=== PATIENT | male | born 1975 ===

== ENCOUNTER 2017-02-21 13:32 | Inpatient (IN) | payer BC, OTHER ==
[~2017-02-21] VITALS: Ht 182.9 cm; Wt 81.6 kg
[2017-02-21] MEDS ORDERED: LOPERAMIDE HCL 2 MG CAPSULE PO PRN ×2 (15:45)
[2017-02-21] MEDS ORDERED: LORAZEPAM 1 MG TABLET PO PRN ×2 (15:45)
[2017-02-21] MEDS ORDERED: LORAZEPAM 2 MG/1 ML VIAL IM PRN (15:45)
[2017-02-21] MEDS ORDERED: CLONIDINE HCL 0.1 MG TABLET PO PRN (15:45)
[2017-02-21] MEDS ORDERED: ACETAMINOPHEN 325 MG TABLET PO PRN (15:45)
[2017-02-21] MEDS ORDERED: MIRALAX 17 GM POWD.PACK PO PRN (15:45)
[2017-02-21] MEDS ORDERED: diphenhydrAMINE 50 MG CAPSULE PO PRN (15:45)
[2017-02-21] MEDS ORDERED: ONDANSETRON 4 MG/2 ML VIAL IM PRN (15:45)
[2017-02-21] MEDS ORDERED: THIAMINE HCL 200 MG/2 ML VIAL IM ONE (15:45)
[2017-02-21] MEDS ORDERED: MAG HYDROX/AL HYDROX/SIMETH 30 ML LIQUID UDC PO PRN (15:45)
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
[2017-02-21] MEDS ORDERED: SERT100T PO (16:15)
[2017-02-21] MEDS ORDERED: PANT40TA2 PO (16:15)
[2017-02-21] MEDS ORDERED: SUCR1TAB31 PO (16:15)
[2017-02-21] MEDS ORDERED: THIA100T13 GT (16:15)
[2017-02-21] MEDS ORDERED: MULT-634 PO (16:15)
[2017-02-21] MEDS ORDERED: FOLI1TAB16 PO (16:15)
[2017-02-21] MEDS ORDERED: PROM25TA15 PO (16:15)
[2017-02-21] MEDS ORDERED: ONDA4TAB11 PO (16:15)
[2017-02-21 17:07] LABS: *AMPHETAMINE, URINE NEGATIVE (NEGATIVE); *BARBITURATE, URINE NEGATIVE (NEGATIVE); *CANNABINOID, URINE NEGATIVE (NEGATIVE); *COCCAINE, URINE NEGATIVE (NEGATIVE); *OPIATE, URINE NEGATIVE (NEGATIVE); *PHENCYCLIDINE SCREEN,URINE NEGATIVE (NEGATIVE)
[2017-02-21] MEDS: LORAZEPAM 1 MG TABLET PO SCH ×2 (17:12→21:52)
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
--- NOTE | 2017-02-21 18:38 | NUR ---
END OF SHIFT: NEW PT IS LAYING IN BED SLEEPING WITH RESPIRATIONS EVEN AND UNLABORED. CALL BEST IN REACH. WILL PASS SHIFT REPORT TO ONCOMING NIGHT NURSE.
--- NOTE | 2017-02-21 19:50 | NUR ---
START OF SHIFT Received report from day shift nurse. Pt is lying in bed resting. He is a [address] [facility] today for ETOH dependence. He is A&O x4 and ambulatory. Allergic to cipro, full code status, and on a regular diet. He has a PMH of pancreatitis, seizure x5, anxiety, and depression. Last seizure was 12/2016. On admission he reported using vodka 750mL per day. He was hospitalized for 4 days prior to admission and he received Ativan during that time. MRSA swab to be collected. Pt has moist skin and fine tremors. Taper due tonight. Fall and seizure precautions in place. Bed is down with call light in reach.
[2017-02-21 20:00] VITALS: BP 104/67
[2017-02-21 23:07] LABS: ALANINE AMINOTRANSFERASE 72 U/L (16-63); ALKALINE PHOSPHATASE 59 U/L (50-136); AMYLASE 39 U/L (25-115); ASPARTATE AMINOTRANSFERASE 46 U/L (15-37); CARBON DIOXIDE 25 mmol/L (21-32); CHLORIDE 105 mmol/L (98-107); GLUCOSE 116 mg/dL (74-106); LIPASE 98 U/L (73-393); MAGNESIUM 1.6 mg/dL (1.8-2.4); POTASSIUM 3.8 mmol/L (3.5-5.1); TOTAL PROTEIN, SERUM 6.8 g/dL (6.4-8.2); UREA NITROGEN, BLOOD 16 mg/dL (7-18)
[2017-02-21 23:31] LABS: ETHANOL < 3 MG/DL (0-0)
[2017-02-21 23:38] LABS: BASOPHILS % (AUTO) 0.7 % (0.0-2.0); EOSINOPHILS # (AUTO) 0.4 K/uL (0.0-0.7); EOSINOPHILS % (AUTO) 6.8 % (0.0-7.0); HEMATOCRIT 42.9 % (40-50); HEMOGLOBIN 14.5 G/DL (14.0-18.0); LYMPHOCYTES # (AUTO) 1.9 K/UL (0.8-4.8); LYMPHOCYTES % (AUTO) 35.4 % (20.5-51.5); MEAN CORPUSCULAR HEMOGLOBIN 32.4 UUG (27.0-31.0); MEAN CORPUSCULAR HGB CONC 34 g/dL (32.0-37.0); MONOCYTES # (AUTO) 0.5 K/UL (0.1-1.30); MONOCYTES % (AUTO) 9.6 % (0.0-11.0); NEUTROPHILS # (AUTO) 2.5 K/UL (1.8-8.9); NEUTROPHILS % (AUTO) 47.5 % (38.5-71.5); PLATELET COUNT (AUTO) 122 K/UL (150-450); RED BLOOD CELL COUNT(AUTO) 4.47 MIL/UL (4.7-6.1); WHITE BLOOD COUNT (AUTO) 5.3 K/UL (4.0-11.2)
[2017-02-21] MEDS ORDERED: MAGNESIUM OXIDE 400 MG TABLET PO ONE (23:45)
--- NOTE | 2017-02-21 23:48 | NUR ---
Mag Ox 400mg administered for Mg level 1.6
[2017-02-22] VITALS (7 sets, daily range): BP systolic 118–133; BP diastolic 77–92
[2017-02-22] MEDS: ONDANSETRON ODT 4 MG TAB.RAPDIS SL PRN (04:50)
--- NOTE | 2017-02-22 04:51 | NUR ---
PRN Zofran Pt reports nausea without vomiting. PRN Zofran administered.
--- NOTE | 2017-02-22 05:20 | NUR ---
PRN Zofran reassessment PRN Zofran effective. Pt reports nausea is resolved.
--- NOTE | 2017-02-22 06:10 | NUR ---
PRN Ativan Pt woke up and is having a visual hallucination. He states, "Do you know where my brother is? He just walked out the door". Re-oriented him to the situation. Pt verbalizes understanding then states ,"if you see my brother ask him to come in here". Pt is cooperative. He has mild tremors and dilated pupils. CIWA 9. PRN Ativan administered.
--- NOTE | 2017-02-22 07:10 | NUR ---
PRN Ativan reassessment PRN Ativan effective. Pt is lying in bed resting with eyes closed. Respirations even and unlabored. Safety measures in place.
--- NOTE | 2017-02-22 07:18 | NUR ---
END OF SHIFT 315 Report provided to day shift nurse. Pt is lying in bed resting. He is a 41 yo male admitted to [facility] today for ETOH dependence. He is A&O x4 and ambulatory. Allergic to cipro, full code status, and on a regular diet. He has a PMH of pancreatitis, seizure x5, anxiety, and depression. Last seizure was 12/2016. On admission he reported using vodka 750mL per day. He was hospitalized for 4 days prior to admission and he received Ativan during that time. MRSA swab was collected. PRN Zofran administered for nausea. Pt woke up early in the morning with a visual hallucination. CIWA was 9. PRN Ativan administered and was able to fall back to sleep. He drank 1451mL and slept for 7 hours. Fall and seizure precautions in place. Bed is down with call light in reach.
--- NOTE | 2017-02-22 08:10 | NUR ---
START OF SHIFT: RECEIVED PT A/O X 4. HE STATES HE GOT CONFUSED EARLIER THIS MORNING AND THOUGHT HE SAW HIS BROTHER. HE STATES HE FEELS MORE CLEAR HEADED THIS AM. ATIVAN TAPER IN PROGRESS. CIWA 8. ENCOURAGED INCREASED FLUIDS AND REST TODAY. PPD PLANTED TO [facility]. HE IS COMPLIANT WITH MEDICATIONS AND TREATMENT PLAN. WILL CONTINUE TO MONITOR AND MANAGE S/S OF W/D.
[2017-02-22] MEDS ORDERED: TUBERCULIN,PURIF.PROT.DERIV. 5 TU/0.1 ML TEST ID ONE (09:00)
[2017-02-22] MEDS: MULTIVITAMINS,THERAPEUTIC TABLET PO SCH (09:12)
[2017-02-22] MEDS: THIAMINE HCL 100 MG TABLET PO SCH (09:12)
[2017-02-22] MEDS: FOLIC ACID 1 MG TABLET PO SCH (09:12)
[2017-02-22] MEDS: LORAZEPAM 1 MG TABLET PO SCH ×3 (09:21→21:02)
--- NOTE | 2017-02-22 16:05 | NUR ---
1500 MEDS HELD PT IS ASLEEP. RESPIRATIONS EVEN AD UNLABORED. CIWA DEFERRED AT 1600.
--- NOTE | 2017-02-22 18:50 | NUR ---
END OF SHIFT: PT CONTINUES ON ATIVAN TAPER. LAST CIWA DEFERRED. HIS CIWA AT NOON WAS 7. PPD PLANTED TO [facility]. PT SLEPT MOST OF SHIFT AND SLIGHTLY INCREASED FLUID INTAKE. HE STATES HE HAS HAD NO EPISODES OF HALLUCINATIONS TODAY. WILL PASS SHFT REPORT TO ONCOMING NIGHT NURSE.
--- NOTE | 2017-02-22 19:52 | NUR ---
START OF SHIFT NOTE Pt is a 41 y/o male admitted for ETOH dependence and use. Pt has an allergy to Cipro and reported a PMH of pancreatis, anxiety, depression, and x5 episodes of seizures related to w/d (last one being in December 2016). Per day shift nurse pt was placed on a 5 day Ativan taper (day 2 ) and is tolerating medication well with no s/e or a/r reported. Pt didn't receive any PRNS during the day shift. Last CIWA:7 (1200). At this time pt is in his room sleeping. Pt's skin is slightly moist but intact. No tremors noted. Further assessment deferred until pt is awake. All safety measures in place. Will continue to monitor.
[2017-02-22] MEDS: GABAPENTIN 300 MG CAPSULE PO SCH (21:01)
--- NOTE | 2017-02-23 | NUR ---
VITALS REFUSED/ CIWA DEFERRED Pt refused to have vitals taken at this time. Pt was encouraged x 3 with risks and benefits explained, but the pt still declined. CIWA assessment deferred until patient is awake. All safety measures in place. Will continue to monitor. Addendum: 02/23/17 at 0255 by STEPHANIE DAY LVN Amended: Links added.
--- NOTE | 2017-02-23 04:00 | NUR ---
VITALS REFUSED/ CIWA DEFERRED Pt refused to have vitals taken at this time. Pt was encouraged x 3 with risks and benefits explained, but the pt still declined. CIWA assessment deferred until patient is awake. All safety measures in place. Will continue to monitor. Addendum: 02/23/17 at 0601 by STEPHANIE DAY LVN Amended: Links added.
--- NOTE | 2017-02-23 06:59 | NUR ---
END OF SHIFT NOTE Pt is a 41 y/o male admitted for ETOH dependence and use. Pt has an allergy to Cipro and reported a PMH of pancreatis, anxiety, depression, and x5 episodes of seizures related to w/d (last one being in December 2016). Pt continues on a 5 day Ativan taper (day 3 ) and is tolerating medication well with no s/e or a/r reported. Pt didn't receive any PRNS during the shift. Last CIWA: 1 (1999). Pt slept for a total of 6 hours. All safety measures in place. Will endorse to the oncoming nurse.
--- NOTE | 2017-02-23 07:11 | NUR ---
start of shift note: received pt from shift superintendent caustic cresylate nurse, pt is in stable condition at this time no s/s of pain or discomfort, pt's last ciwa 1. pt is [facility] to [facility] for [facility] withdrawal/dependence. will monitor pt for any changes. and will continue to monitor pt for any A/R to medication. will encourage pt to join groups and monitor pt for any changes
[2017-02-23] MEDS: MULTIVITAMINS,THERAPEUTIC TABLET PO SCH (08:06)
[2017-02-23] MEDS: SERTRALINE HCL 100 MG TABLET PO SCH (08:06)
[2017-02-23] MEDS: FOLIC ACID 1 MG TABLET PO SCH (08:06)
[2017-02-23] MEDS: THIAMINE HCL 100 MG TABLET PO SCH (08:06)
[2017-02-23] MEDS: LORAZEPAM 1 MG TABLET PO SCH ×4 (08:06→20:56)
[2017-02-23] MEDS: GABAPENTIN 300 MG CAPSULE PO SCH ×3 (08:06→20:55)
[2017-02-23 08:09] VITALS: BP 109/71
[2017-02-23 11:08] LABS: HEPATITIS B SURFACE AG Negative (Negative)
--- NOTE | 2017-02-23 12:08 | NUR ---
prn administration clonidine for increased b/p. pt was noted with b/p of 163/90.
[2017-02-23 12:11] VITALS: BP 163/91
--- NOTE | 2017-02-23 12:20 | NUR ---
prn re-assessment: prn clonidine was effective pt is in bed sleeping and and blood pressure is noted to be 132/89.
--- NOTE | 2017-02-23 13:46 | NUR ---
Therapist prompted client about group times. Client stated he will try to attend when he feels better.
[2017-02-23 17:51] VITALS: BP 121/91
--- NOTE | 2017-02-23 19:11 | NUR ---
end of shift note: pt is admitted to [facility] to for etoh withdrawal/dependence. pts last ciwa 5. pt tolerated taper medications well. no A/R noted, pt with improved ADL's. will endorse pt to slot shift supervisor nurse.
--- NOTE | 2017-02-23 19:34 | NUR ---
START OF SHIFT NOTE Pt is a 41 y/o male admitted for ETOH dependence and use. Pt has an allergy to Cipro and reported a PMH of pancreatis, anxiety, depression, and x5 episodes of seizures related to w/d (last one being in December 2016). Per day shift nurse pt continues on a 5 day Ativan taper (day 3 ) and is tolerating medication well with no s/e or a/r reported. Pt received Clonidine 0.1 mg PO PRN during the day shift. Last CIWA:5 (1600). At this time pt is in his room laying down watching television. Pt's skin is dry and intact. No tremors noted. PERRLA noted. Pt denies any pain/discomfort at this time. Pt is encouraged to notify staff of any changes in condition or of any concerns. Pt verbalized an understanding. All safety measures in place. Will continue to monitor.
[2017-02-23 20:00] VITALS: BP 119/78
--- NOTE | 2017-02-24 | NUR ---
VITALS REFUSED/CIWA DEFERRED Pt refused to have vitals taken at this time. Pt was encouraged x 3 with risks and benefits explained but the pt still declined. CIWA deferred until pt is awake. All safety measures in place. Will continue to monitor. Addendum: 02/24/17 at 0149 by STEPHANIE DAY LVN Amended: Links added.
[2017-02-24] MEDS: TRAZODONE 50 MG TABLET PO PRN ×2 (01:50→20:19)
--- NOTE | 2017-02-24 01:53 | NUR ---
TRAZODONE PRN ADMINISTRATION Pt requested Trazodone for sleep stating " I woke up for a cigarette and now I can't go back to sleep." Trazodone 50 mg PO PRN was given. Pt was encouraged to notify staff of any changes in condition or of any further concerns. Pt verbalized an understanding. All safety measures in place. Will monitor for effectiveness.
--- NOTE | 2017-02-24 02:53 | NUR ---
TRAZODONE PRN REASSESSMENT Pt is asleep in bed with no signs of discomfort distress noted. PRN effective. Will continue to monitor.
--- NOTE | 2017-02-24 04:00 | NUR ---
VITALS REFUSED/ CIWA DEFERRED Pt refused to have vitals taken at this time. Pt was encouraged x 3 with risks and benefits explained, but the pt still declined. CIWA assessment deferred until pt is awake. All safety measures in place. Will continue to monitor. Addendum: 02/24/17 at 0454 by STEPHANIE DAY LVN Amended: Links added.
--- NOTE | 2017-02-24 05:40 | NUR ---
NURSING NOTE Pt is asleep in bed with no changes in condition. Breathing is even an unlabored. All safety measures in place. Endorsed to nurse A.H to ensure monitoring is continued.
--- NOTE | 2017-02-24 06:30 | NUR ---
0630 Patient slept a total of 9.5 hours and he had 1 void and no stools. Total intake was 296 ml p.o. Prn medication give noted separately per floor protocol. V/SS afebrile, last CIWA 5 at 1999. Patient is presently sleeping comfortably in stable condition with eyes closed and respirations quiet, even, unlabored at 12.
[2017-02-24 08:00] VITALS: BP 102/70
--- NOTE | 2017-02-24 08:00 | NUR ---
START OF SHIFT NOTE Received report from night nurse, 41 year old male admitted for ETOH dependence. Allergic to Cipro, Full code status, and on a regular diet. Pt reported PMH of pancreatitis, seizure x5, anxiety, and depression. Last seizure was 12/2016. Per endorsement pt received PRN Trazodone and slept for 9 hours. last CIWA score was-5. Received pt alert awake oriented x4 in stable condition. Pt presented anxious and agitated. Educated pt with plan of care and medication regimen, importance of attending groups with good verbal understanding. All safety measures in place, call light within reach. Will cont to monitor.
[2017-02-24] MEDS: SERTRALINE HCL 100 MG TABLET PO SCH (08:08)
[2017-02-24] MEDS: GABAPENTIN 300 MG CAPSULE PO SCH ×3 (08:08→20:19)
[2017-02-24] MEDS: MULTIVITAMINS,THERAPEUTIC TABLET PO SCH (08:08)
[2017-02-24] MEDS: FOLIC ACID 1 MG TABLET PO SCH (08:09)
[2017-02-24] MEDS: LORAZEPAM 1 MG TABLET PO SCH ×3 (08:09→20:19)
[2017-02-24] MEDS: THIAMINE HCL 100 MG TABLET PO SCH (08:09)
[2017-02-24 12:00] VITALS: BP 110/75
[2017-02-24 16:00] VITALS: BP 109/71
--- NOTE | 2017-02-24 19:09 | NUR ---
END OF SHIFT NOTE Endorsed Pt to night patrol inspector nurse. Patient is AOX4. 41 year old male admitted for ETOH dependence. Allergic to Cipro, Full code status, and on a regular diet. Pt reported PMH of pancreatitis, seizure x5, anxiety, and depression. Last seizure was 12/2016. Pt remained compliant with plan of care. Patient encouraged to attend group therapies/sessions to learn new coping skills to prevent relapse, patient denies SI/HI. Pt remained compliant with plan of care. Fall and seizure precautions observed at all times, all needs met and rendered, Safety measures in place. Call light kept within reach. Patient endorsed to night patrol inspector nurse, all pertinent information discussed. Patient endorsed to night patrol inspector nurse in stable condition.
[2017-02-24 20:00] VITALS: BP 97/64
--- NOTE | 2017-02-24 20:00 | NUR ---
1999 Patient received sleeping in prone position. Aroused for nurse assess and vital signs. Patient responds to nurse's greeting and introduction with, " Hi, I'm okay". Patient is oriented to person, place, day and his personal situation. Easily reoriented to date and time. Patient's color is pink and his skin is warm, dry and intact. Patient states that he doesn't need any pain medication at this time, as his "pancreatitis pain is always there", but is bearable at this time. " It's about a 3 right now". Patient states further that he has been eating his regular diet trays "okay" and taking various fluids ad ambika with no gastric issues. Patient states that he does attend [facility] groups but he did not attend PM group tonight. Vital signs are: 98.3-70-16 97/64, O2 Sat 97% CIWA 2 Patient was admitted on 02/21/17 for Alcohol withdrawal and he is currently on a 5-Day Ativan medication taper, which he has apparently been tolerating well thus far. Patient is cooperative and verbally appropriate when interacting with nurse, though affect somewhat flat. Patient voices no requests for anything at this time. Bed is locked and in lowest position, bed rails are up X 1 and call light within patient's easy reach.
--- NOTE | 2017-02-24 20:19 | NUR ---
PRN MEDICATION: Prn Trazadone 50 mg p. given per request for sleep medication.
--- NOTE | 2017-02-24 21:19 | NUR ---
REASSESSMENT PRN MEDICATION: Patient is sleeping soundly with eyes closed and respirations deep, even, unlabored at 12.
--- NOTE | 2017-02-25 | NUR ---
Patient refused to be awakened for vial signs to be done at this time.
--- NOTE | 2017-02-25 04:00 | NUR ---
Patient refused to be awakened for vital signs to be done at this time.
--- NOTE | 2017-02-25 06:30 | NUR ---
0630 Patient slept a total of 8 hours and he had 1 void and no stools. Total intake was 850 mg p.o. Prn medication given noted separately per floor protocol. V/SS afebrile, last CIWA 2 at 1999. Patient is presently sleeping comfortably in stable condition with eyes closed and respirations quiet, even, unlabored at 12.
[2017-02-25 08:00] VITALS: BP 102/65
--- NOTE | 2017-02-25 08:15 | NUR ---
START OF SHIFT: RECEIVED PT A/O X 4. BLAINE PRESENTS WITH BLUNTED AFFECT AND DEPRESSED MOOD. HE REPORTS SOME INTERMITTENT ANXIETY. HE STATES HE IS SLEEPING WELL. ATIVAN TAPER IN PROGRESS. KAILYN 5. ENCOURAGED GROUP ATTENDANCE TO PREVENT RELAPSE AND IMPROVE COPING SKILLS. WILL CONTINUE TO MONITOR AND OFFER SUPPORT.
[2017-02-25] MEDS: FOLIC ACID 1 MG TABLET PO SCH (08:49)
[2017-02-25] MEDS: LORAZEPAM 1 MG TABLET PO SCH ×2 (08:50→21:02)
[2017-02-25] MEDS: MULTIVITAMINS,THERAPEUTIC TABLET PO SCH (08:50)
[2017-02-25] MEDS: GABAPENTIN 300 MG CAPSULE PO SCH ×3 (08:50→21:02)
[2017-02-25] MEDS: THIAMINE HCL 100 MG TABLET PO SCH (08:50)
[2017-02-25] MEDS: SERTRALINE HCL 100 MG TABLET PO SCH (08:50)
[2017-02-25 12:00] VITALS: BP 126/79
[2017-02-25 16:00] VITALS: BP 122/80
--- NOTE | 2017-02-25 18:33 | NUR ---
END OF SHIFT: PT CONTINUES ON ATIVAN TAPER. LAST CIWA 3. HE ATTENDED ACTIVITIES AND GROUPS TODAY AND INTERACTS WITH PEERS. HE EXPRESSED ENTHUSIASM TOWARD RECOVERY. WILL PASS SHIFT REPORT TO ONCOMING NIGHT NURSE.
[2017-02-25 20:00] VITALS: BP 118/87
--- NOTE | 2017-02-25 20:00 | NUR ---
START OF SHIFT NOTE PATIENT IS ALERT AND ORIENTED X 4. RESPIRATION EVEN AND UNLABORED. PATIENT C/O ANXIETY, HEADACHE 2/10 AND PAIN ON ABDOMINAL AREA PER PATIENT BECAUSE OF HIS PANCREATITIS 11/26. PATIENT ATTENDED GROUPS , HAS GOOD APPETITE AND HAD BM. PATIENT IS ALSO DRINKING FLUIDS WELL. RECEIVED REPORT FROM DAY SHIFT NURSE. PATIENT IS A 41 YEAR OLD MALE ADMITTED FOR ETOH DEPENDENCE. PATIENT IS ON 5TH DAY OF HIS 5 DAY ATIVAN TAPER. PATIENT REPORTS PMH OF SEIZURE , LAST SEIZURE WAS 12/2016 X 5. UPON ADMISSION, PATIENT DRINKS 750 ML VODKA FOR A MONTH. HE WAS HOSPITALIZED PRIOR TO ADMISSION FOR 4 DAYS AND WAS GIVEN ATIVAN. PATIENT IS ALLERGIC TO CIPRO. LAST CIWA 2. SKIN INTACT. PATIENT DID NOT REQUIRE ANY PRN MEDICATION. ON FALL/SEIZURE PRECAUTION. SAFETY MEASURES IN PLACE. CALL LIGHT IN REACH. WILL CONTINUE TO MONITOR
[2017-02-25] MEDS: IBUPROFEN 400 MG TABLET PO PRN (21:02)
--- NOTE | 2017-02-25 21:02 | NUR ---
PRN MOTRIN ADMINISTRATION PATIENT C/O HEADACHE 08/29 AND PAIN ON ABDOMEN 11/26. PRN MOTRIN GIVEN. WILL MONITOR FOR EFFECTIVENESS
--- NOTE | 2017-02-25 22:02 | NUR ---
PRN MOTRIN RE-ASSESSMENT PATIENT STATES MOTRIN HELPFUL . PAIN LEVEL 3 AT THIS TIME, TOLERABLE.
[2017-02-25] MEDS: TRAZODONE 50 MG TABLET PO PRN (23:09)
--- NOTE | 2017-02-25 23:09 | NUR ---
PRN TRAZADONE ADMINISTRATION PATIENT REQUESTS FOR SLEEP AID . PRN TRAZADONE GIVEN. WILL MONITOR FOR EFFECTIVENESS
[2017-02-26] VITALS: BP 147/87
--- NOTE | 2017-02-26 01:00 | NUR ---
PRN TRAZADONE RE-ASSESSMENT PATIENT ASLEEP AT THIS TIME. WILL CONTINUE TO MONITOR.
--- NOTE | 2017-02-26 04:00 | NUR ---
CIWA /VS PATIENT ASLEEP AT THIS TIME. CIWA UNABLE TO ASSESS. RESPIRATION EVEN AND UNLABORED. RR 15. SAFETY MEASURES IN PLACE. CALL LIGHT IN REACH. WILL CONTINUE TO MONITOR.
--- NOTE | 2017-02-26 07:17 | NUR ---
END OF SHIFT NOTE PATIENT REMAIN ALERT AND ORIENTED X 4. RESPIRATION EVEN AND UNLABORED. PATIENT C/O ANXIETY, HEADACHE /10 AND PAIN ON ABDOMINAL AREA PER PATIENT BECAUSE OF HIS PANCREATITIS / BEGINNING OF SHIFT . PATIENT ATTENDED GROUPS , HAS GOOD APPETITE AND HAD BM. PATIENT IS ALSO DRINKING FLUIDS WELL. PATIENT IS A 41 YEAR OLD MALE ADMITTED FOR ETOH DEPENDENCE. PATIENT IS ON 5TH DAY OF HIS 5 DAY ATIVAN TAPER, TOLERATED WELL AND NO ADVERSE REACTION. PATIENT REPORTS PMH OF SEIZURE , LAST SEIZURE WAS 12/2016 X 5. UPON ADMISSION, PATIENT DRINKS 750 ML VODKA FOR A MONTH. HE WAS HOSPITALIZED PRIOR TO ADMISSION FOR 4 DAYS AND WAS GIVEN ATIVAN. PATIENT IS ALLERGIC TO CIPRO. SKIN INTACT. PATIENT WAS GIVEN PRN MOTRIN AND TRAZADONE. PATIENT COMPLIANT WITH MEDICATIONS AND TREATMENT PLAN. ON FALL/SEIZURE PRECAUTION. SAFETY MEASURES IN PLACE. CALL LIGHT IN REACH. WILL CONTINUE TO MONITOR . SLEPT 4 HOURS . FLUID INTAKE 651 ML. VOIDED X 2 .NO BM. LAST CIWA 1.
[2017-02-26 08:00] VITALS: BP 110/65
--- NOTE | 2017-02-26 08:02 | NUR ---
START OF SHIFT: RECEIVED PT A/O X 4. HE PRESENTS WITH GUARDED AFFECT AND DEPRESSED MOOD. HE REPORTS MILD ANXIETY. HE STATES HE IS SLEEPING WELL. CIWA 2 . ATIVAN TAPER WAS COMPLETED YESTERDAY. ENCOURAGED GROUP ATTENDANCE TO PREVENT RELAPSE AND IMPROVE COPING SKILLS. HE STATES HE IS ATTENDING AND VERBALIZES ENTHUSIASM TOWARD RECOVERY.WILL CONTINUE TO MONITOR AND OFFER SUPPORT.
[2017-02-26] MEDS: GABAPENTIN 300 MG CAPSULE PO SCH ×3 (08:25→20:58)
[2017-02-26] MEDS: THIAMINE HCL 100 MG TABLET PO SCH (08:25)
[2017-02-26] MEDS: MULTIVITAMINS,THERAPEUTIC TABLET PO SCH (08:25)
[2017-02-26] MEDS: SERTRALINE HCL 100 MG TABLET PO SCH (08:25)
[2017-02-26] MEDS: FOLIC ACID 1 MG TABLET PO SCH (08:25)
[2017-02-26 12:00] VITALS: BP 119/79
[2017-02-26 14:24] LABS: *AMPHETAMINE, URINE NEGATIVE (NEGATIVE); *BARBITURATE, URINE NEGATIVE (NEGATIVE); *CANNABINOID, URINE NEGATIVE (NEGATIVE); *COCCAINE, URINE NEGATIVE (NEGATIVE); *OPIATE, URINE NEGATIVE (NEGATIVE); *PHENCYCLIDINE SCREEN,URINE NEGATIVE (NEGATIVE)
[2017-02-26 16:00] VITALS: BP 130/85
[2017-02-26] MEDS: ONDANSETRON ODT 4 MG TAB.RAPDIS SL PRN (18:10)
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
--- NOTE | 2017-02-26 19:45 | NUR ---
Start of Shift Note: Report received. Pt admitted for ETOH withdrawal and has completed a 5-day Ativan taper. Pt discharges tomorrow. Pt received in room and reports mild anxiety and readiness for discharge. Pt requests medication to help him sleep tonight, and MOtrin for a headache. All safety precautions are in place. Discharge UDS printed and placed in chart along with TB clearance. Will continue to monitor.
[2017-02-26 20:00] VITALS: BP 113/82
[2017-02-26] MEDS: IBUPROFEN 400 MG TABLET PO PRN (20:58)
--- NOTE | 2017-02-26 20:58 | NUR ---
PRN MOtrin: Pt c/o 09/26 ABD pain. Administered PRN Motrin as ordered. Will continue to monitor.
[2017-02-26] MEDS: TRAZODONE 50 MG TABLET PO PRN (22:43)
--- NOTE | 2017-02-26 22:44 | NUR ---
RN Trazodone: Patient c/o inability to sleep. Administered PRN Trazodone as ordered. Will continue to monitor.
--- NOTE | 2017-02-26 23:00 | NUR ---
PRN Reassessment: Pt denies pain at this time. PRN Motrin effective.
--- NOTE | 2017-02-27 | NUR ---
Vitals Refused, CIWA Deferred: Pt refuses 00:00 V/S. CIWA is deferred for sleep. Addendum: 02/27/17 at 0139 by TERRELL ALCANTAR RN Amended: Links added.
--- NOTE | 2017-02-27 04:00 | NUR ---
V/S Refused, CIWA Deferred: Pt refuses 04:00 V/S. CIWA is deferred for sleep. All safety precautions are in place. Will continue to monitor. Addendum: 02/27/17 at 0512 by TERRELL ALCANTAR RN Amended: Links added.
--- NOTE | 2017-02-27 07:27 | NUR ---
End of Shift Note: Pt is a 41 y/o male admitted to [facility] on 02/21/17 for medically-supervised withdrawal from ETOH. Pt reported PMHx of depression, anxiety, pancreatitis, seizure x5. Pt is a full code, reports allergy to Cipro, and is on a regular diet. Pt reported drinking 750ml vodka daily. Pt completed a 5-day Ativan taper and is to discharge today. Scheduled medication regime managed s/s of withdrawal this shift. Last CIWA=1 at 20:00. PRN Motrin was given for abdominal pain, which was effective. V/S stable throughout shift. Total fluid intake this shift: 1300 ml; output: urine x 3 and BM x 0. PRN Trazodone was given for insomnia, which was effective and slept 6 hours this shift. Pt is currently in bed, all needs have been attended and met. Pt endorsed to day shift nurse.
[2017-02-27] MEDS ORDERED: TRAZ-144 PO (08:01)
[2017-02-27] MEDS ORDERED: ONDA4TAB11 SL (08:01)
[2017-02-27] MEDS ORDERED: GABA-534 PO (08:01)
[2017-02-27] MEDS ORDERED: CLON0.1T14 PO (08:01)
--- NOTE | 2017-02-27 08:05 | NUR ---
START OF SHIFT: RECEIVED PT A/O X 4. HE PRESENTS WITH BRIGHTER AFFECT. ATIVAN TAPER HE STATES HE FEELS MOTIVATED TOWARD RECOVERY. DISCHARGE PLANNING IN PROGRESS. WILL CONTINUE TO MONITOR AND OFFER SUPPORT.
[2017-02-27] MEDS: SERTRALINE HCL 100 MG TABLET PO SCH (08:18)
[2017-02-27] MEDS: THIAMINE HCL 100 MG TABLET PO SCH (08:18)
[2017-02-27] MEDS: FOLIC ACID 1 MG TABLET PO SCH (08:18)
[2017-02-27] MEDS: GABAPENTIN 300 MG CAPSULE PO SCH (08:18)
[2017-02-27] MEDS: MULTIVITAMINS,THERAPEUTIC TABLET PO SCH (08:18)
--- NOTE | 2017-02-27 11:02 | NUR ---
DISCHARGE: PT IS A/O X 4. HE DENIES S/I AND H/I. HE STATES HE FEELS READY TO MOVE FORWARD WITH TREATMENT. BELONGINGS RETURNED. EDUCATED PT ON DISCHARGE INSTRUCTIONS AND MEDICATIONS. PT EXPRESSED VERBAL UNDERSTANDING OF EDUCATION. [facility] ESCORTED PT TO [facility] WHERE HE WAS TRANSPORTED BY [facility] TO [facility] AT 0925.
== END 2017-02-27 09:25 | disposition other institution (70) | DRG 895 ==
LOC: SRC 15:22
PROVIDERS: ADMIT Internal Medicine; ATTEND Internal Medicine
PROC: HZ2ZZZZ Detoxification Services for Substance Abuse Treatment (ICD-10-PCS; principal; 2017-02-21)
PROC: HZ31ZZZ Individual Counseling for Substance Abuse Treatment, Behavioral (ICD-10-PCS; 2017-02-23)
PROC: HZ41ZZZ Group Counseling for Substance Abuse Treatment, Behavioral (ICD-10-PCS; 2017-02-25)
DX: F10.230 Alcohol dependence with withdrawal, uncomplicated (principal); K70.10 Alcoholic hepatitis without ascites; Y90.0 Blood alcohol level of less than 20 mg/100 ml; E83.42 Hypomagnesemia; Z81.1 Family history of alcohol abuse and dependence; Z82.49 Family history of ischemic heart disease and other diseases of the circulatory system; Z80.3 Family history of malignant neoplasm of breast; F41.9 Anxiety disorder, unspecified; F17.210 Nicotine dependence, cigarettes, uncomplicated; F32.9 Major depressive disorder, single episode, unspecified; Z86.69 Personal history of other diseases of the nervous system and sense organs; D69.59 Other secondary thrombocytopenia; Z79.899 Other long term (current) drug therapy; R73.9 Hyperglycemia, unspecified
CPT/HCPCS: 36415; 70030-TC; 80307; 83690; 83735; 85025; 86592; 86705; 86803; 87340; 87806; A4663; G0480; Q0162

== ENCOUNTER 2017-08-25 18:37 | Inpatient (IN) | payer BC, OTHER ==
[~2017-08-25] VITALS: Ht 182.9 cm; Wt 78.0 kg
[~2017-08-25 18:37] MED LIST: CLON0.1T14 PO; FOLI1TAB16 PO; GABA-534 PO; MULT-634 PO; ONDA4TAB11 PO; ONDA4TAB11 SL; PANT40TA2 PO; PROM25TA15 PO; SERT100T PO; SUCR1TAB31 PO; THIA100T13 GT; TRAZ-144 PO
[2017-08-25] MEDS ORDERED: ONDANSETRON ODT 4 MG TAB.RAPDIS SL PRN (21:30)
[2017-08-25] MEDS ORDERED: LOPERAMIDE HCL 2 MG CAPSULE PO PRN ×2 (21:30)
[2017-08-25] MEDS ORDERED: CLONIDINE HCL 0.1 MG TABLET PO PRN (21:30)
[2017-08-25] MEDS ORDERED: MAGNESIUM HYDROXIDE 30 ML LIQUID UDC PO PRN (21:30)
[2017-08-25] MEDS ORDERED: IBUPROFEN 400 MG TABLET PO PRN (21:30)
[2017-08-25] MEDS ORDERED: LORAZEPAM 1 MG TABLET PO PRN (21:30)
[2017-08-25] MEDS ORDERED: MIRALAX 17 GM POWD.PACK PO PRN (21:30)
[2017-08-25] MEDS ORDERED: DICYCLOMINE HCL 20 MG TABLET PO PRN (21:30)
[2017-08-25] MEDS ORDERED: diphenhydrAMINE 50 MG CAPSULE PO PRN (21:30)
[2017-08-25] MEDS ORDERED: ONDANSETRON 4 MG/2 ML VIAL IM PRN (21:30)
[2017-08-25] MEDS ORDERED: LORAZEPAM 2 MG/1 ML VIAL IM PRN (21:30)
[2017-08-25] MEDS ORDERED: THIAMINE HCL 200 MG/2 ML VIAL IM ONE (21:30)
[2017-08-25] MEDS ORDERED: MAG HYDROX/AL HYDROX/SIMETH 30 ML LIQUID UDC PO PRN (21:30)
--- NOTE | 2017-08-25 22:00 | NUR ---
Intake Assessment Patient was seen in intake department and noted to be very flushed, restless, increased anxiety, and agitation. Patient also noted with episode of emesis x2, first episode noted to be coffee grounds and second episode noted to be a large amount and blood tinged. Patient was able to verbalize "I've been throwing up all day and it just started to look this color. I haven't seen in a few days." CN made aware and present. MD made aware with orders to continue to unit with orders to give Ativan 2mg upon arrival to unit. Home medication Policy reviewed with patient and patient verbalized of not having any home medications with him. Will continue with admission assessment on unit.
--- NOTE | 2017-08-25 22:30 | NUR ---
Admission Patient is a 42 year old male arriving from [facility], admitted to [facility] to receive treatment for his ETOH Dependence. Patient was escorted on to unit by male HIGH SCHOOL BAND DIRECTOR where body check was rendered. Skin check rendered by male nurse with skin noted intact. Patient is ambulatory with no assistance needed. Patient was able to provide urine drug screen upon arrival to unit. Patient verbalizes allergies to Ciprofloxacin. Height noted as 6'0 and weight noted as 172lbs. Patient is flushed, restless, anxious, and agitated, nausea, vomiting, verbalizing increased sweats. BUE and BLE noted to be WNL with no edema noted. Lung sounds clear with no cough noted. Bowel sounds are active in all 4 quadrants with LBM noted 08/25/17. Patient verbalizes past medical history of History of Seizures due to alcohol withdrawal, Anxiety, Depression, and history of Pancreatitis. Patient did not bring any home medications but is able to verbalize of taking Zoloft for depression, Vitamin B1, Trazodone 100mg for sleep. All home medications reconciled. Patient explains his recent relapse due recent divorce. Patient denies any suicidal ideations. He describes his usage as: 1. ETOH- Vodka, since the age of 15, recent relapse of 5 days, drinking 750mls each day, with last drink noted 08/25/17 1300 drinking 750mls for the day. Patient explains his signs and symptoms of withdrawal as "nausea, vomiting, tremulous, sweats." Patients has previously been admitted to Detox with last admission noted to be his Sober living [facility] in [place]. Admission CIWA noted to be 28. Per Dr. Richard Ativan 2mg to be administered with PRN medications available for increased signs and symptoms of withdrawal. All information reviewed with Dr. Richard. Labs to be rendered. Will continue plan of acre as ordered.
[2017-08-25 22:37] LABS: BASOPHILS % (AUTO) 0.4 % (0.0-2.0); EOSINOPHILS % (AUTO) 0.1 % (0.0-7.0); HEMATOCRIT 47.8 % (36.7-47.1); HEMOGLOBIN 16.7 g/dL (12.5-16.3); MEAN CORPUSCULAR HEMOGLOBIN 31.7 uug (23.8-33.4); MEAN CORPUSCULAR HGB CONC 35 g/dL (32.5-36.3); MEAN CORPUSCULAR VOLUME 90.7 fL (73.0-96.2); MONOCYTES # (AUTO) 0.8 K/uL (2.0-10.0); MONOCYTES % (AUTO) 6.5 % (0.0-11.0); PLATELET COUNT (AUTO) 179 K/uL (152-348); RED BLOOD CELL COUNT(AUTO) 5.27 MIL/uL (4.06-5.63); WHITE BLOOD COUNT (AUTO) 11.9 K/uL (3.6-10.2)
[2017-08-25 22:40] VITALS: BP 127/100
--- NOTE | 2017-08-25 22:40 | NUR ---
PRN Medication Administration Patient noted with increased nausea, multiple emesis, noted with increased anxiety, and agitation. CIWA noted to be 28. PRN Zofran IM, Ativan 2mg ordered dose, and Clonidine 0.1mg given for blood pressure of 127/100 and pulse of 111. Will continue to monitor
[2017-08-25 22:45] LABS: *AMPHETAMINE, URINE NEGATIVE (NEGATIVE); *BARBITURATE, URINE NEGATIVE (NEGATIVE); *CANNABINOID, URINE NEGATIVE (NEGATIVE); *COCCAINE, URINE NEGATIVE (NEGATIVE); *OPIATE, URINE NEGATIVE (NEGATIVE); *PHENCYCLIDINE SCREEN,URINE NEGATIVE (NEGATIVE)
[2017-08-25] MEDS ORDERED: LORAZEPAM 1 MG TABLET PO SCH (23:00)
[2017-08-25 23:02] LABS: CREATININE 1.3 mg/dL (0.6-1.3); MAGNESIUM 1.7 mg/dL (1.8-2.4); POTASSIUM 3.3 mmol/L (3.5-5.1); TOTAL PROTEIN, SERUM 8.5 g/dL (6.4-8.2)
[2017-08-25] MEDS ORDERED: POTASSIUM CHLORIDE 10 MEQ CAPSULE.SA PO ONE (23:15)
[2017-08-25] MEDS ORDERED: MAGNESIUM OXIDE 400 MG TABLET PO ONE (23:15)
[2017-08-25 23:30] VITALS: BP 132/89
--- NOTE | 2017-08-25 23:30 | NUR ---
PRN Medication Reassessment/MD Communication/ PRN Medication Administration/IV Therapy Patient is noted in bed with intermittent sleep. Patient continues with intermittent nausea and dry heaves. Patient states "its slowly getting better." Patient is able to tolerate ice chips. Noted with sensitivity to light, increased anxiety, and restless. CIWA noted to be 18. MD made aware. Labs resulted with new orders noted with Micro K 30mg one time dose, Mag ox 400mg one time dose, and to start IV Therapy of NS running at 125ml/hr for hydration. 22 gauge started to the right hand, patent and flushing well with no infiltration noted. Due to elevated CIWA patient received PRN Ativan 2mg. Will continue to monitor.
[2017-08-25] MEDS: IV NS 1000 ML 1,000 ML IV PRN (23:53)
[2017-08-26 00:31] VITALS: BP 141/87
--- NOTE | 2017-08-26 00:55 | NUR ---
PRN Medication Reassessment Patient is noted in bed sleeping. Breathing even and non labored. Patient was given PRN Ativan 2mg for CIWA of 18. patient is able to sleep with no restlessness or discomfort noted. Will continue to monitor.
[2017-08-26] MEDS ORDERED: SERT100T PO (02:41)
[2017-08-26] MEDS ORDERED: TRAZ-147 PO (02:41)
[2017-08-26 04:21] VITALS: BP 117/75
--- NOTE | 2017-08-26 07:08 | NUR ---
End of Shift Patient is in bed sleeping. Breathing even and non labored. No signs of restlessness or discomfort noted. Patient was admitted for ETOH Dependence. Patient received one time dose of Ativan 2mg for CIWA of 28. Patient was noted with increased nausea, vomiting, tremors, hypersensitivity to light, and noted with increase blood pressure. PRN Zofran and PRN Clonidine. Patient continues to be noted with elevated CIWA. Additional dose of PRN Ativan 2mg administered with supplement of Potassium 30meq and Mag Ox 400mg. Patient was also started on IV Therapy Fluids of NS running at 125ml/hr. 22 gauge noted to right hand, patent, flushing well, no infiltration noted. Last noted CIWA 15. All needs attended to promptly. Will endorse to continue plan of care as ordered.
--- NOTE | 2017-08-26 07:53 | NUR ---
START OF SHIFT RECEIVED PT LAYING IN BED, A/OX4, RESPIRATIONS EVEN AND UNLABORED. PT APPEARS FLUSHED, PT REPORTS HAVING NAUSEA, MUSCLE CRAMPS, GENERALIZED BODY ACHES, SWEATING, RESTLESS, STATES HE IS FEELING TIRED AND SENSITIVE TO THE LIGHT. TREMORS ARE SEEN. PT HAS IV ON R HAND 22G RUNNING NS 125ML/HR. ENCOURAGED PT TO INCREASE FLUIDS TO PROMOTE HYDRATION. SIDE RAILS UPX2 AND PADDED, BED IS IN LOWEST POSITION. CALL LIGHT IS WITHIN REACH. WILL CONTINUE TO MONITOR AND PROVIDE SUPPORT.
[2017-08-26 08:00] VITALS: BP 119/70
[2017-08-26] MEDS: IV NS 1000 ML 1,000 ML IV PRN ×2 (08:16→20:53)
--- NOTE | 2017-08-26 08:16 | NUR ---
PRN ZOFRAN 4 MG SL PRN GIVEN FOR NAUSEA. WILL MONITOR FOR EFFECTIVENESS.
[2017-08-26] MEDS: FOLIC ACID 1 MG TABLET PO SCH (08:17)
[2017-08-26] MEDS: MULTIVITAMINS,THERAPEUTIC TABLET PO SCH (08:17)
[2017-08-26] MEDS: THIAMINE HCL 100 MG TABLET PO SCH (08:17)
--- NOTE | 2017-08-26 08:46 | NUR ---
REASSESSMENT PT REPORTED ZOFRAN EFFECTIVE FOR NAUSEA. WILL CONTINUE TO MONITOR.
[2017-08-26] MEDS ORDERED: TUBERCULIN,PURIF.PROT.DERIV. 5 TU/0.1 ML TEST ID ONE (09:00)
[2017-08-26] MEDS ORDERED: FAMOTIDINE 20 MG TABLET PO SCH (09:00)
[2017-08-26] MEDS: LORAZEPAM 1 MG TABLET PO PRN ×3 (09:40→20:51)
--- NOTE | 2017-08-26 09:40 | NUR ---
PRN ATIVAN 1 MG PO PRN GIVEN FOR CIWA 12. PT REPORTS NAUSEA, ANXIETY, RESTLESSNESS, SWEATING, SENSITIVITY TO LIGHT, HEADACHE. TREMORS ARE SEEN. WILL MONITOR FOR EFFECTIVENESS.
--- NOTE | 2017-08-26 10:40 | NUR ---
REASSESSMENT UPON REASSESSMENT, PT CIWA IS 10. WILL CONTINUE TO MONITOR.
[2017-08-26] MEDS ORDERED: ONDANSETRON 4 MG/2 ML VIAL IV PRN (11:15)
[2017-08-26 12:00] VITALS: BP 98/63
--- NOTE | 2017-08-26 12:30 | NUR ---
PRN ATIVAN 1MG PO PRN GIVEN FOR CIWA 10 AND MAALOX PO PRN GIVEN FOR UPSET STOMACH AND PAIN 7/10. PT REPORTS HAVING NAUSEA, RESTLESSNESS, ANXIETY. PT APPEARS FLUSHED, EYES APPEAR RED, TREMORS ARE SEEN. WILL MONITOR FOR EFFECTIVENESS.
--- NOTE | 2017-08-26 13:30 | NUR ---
REASSESSMENT PT CIWA AT 9. PT REPORTED MAALOX WAS PARTIALLY EFFECTIVE FOR HIS STOMACH PAIN NOW INTERMITTENTLY HURTING PAIN /. WILL CONTINUE TO MONITOR.
[2017-08-26 16:00] VITALS: BP 112/61
--- NOTE | 2017-08-26 19:30 | NUR ---
END OF SHIFT PT LAST CIWA 9 AT 1600. PT HAS IV ON R HAND 22G RUNNING NS 125ML/HR. ENCOURAGED PT TO INCREASE FLUIDS TO PROMOTE HYDRATION. PT HAS HAD INTERMITTENT NAUSEA THROUGHOUT SHIFT RELIEVED BY ZOFRAN. PT REPORTS HAVING PAIN IN HIS STOMACH INTERMITTENTLY THROUGHOUT SHIFT. SIDE RAILS UPX2 AND PADDED, BED IS IN LOWEST POSITION. CALL LIGHT IS WITHIN REACH. WILL GIVE ALL ENDORSEMENT AND PERTINENT INFO TO PERSONNEL MONITOR NURSE.
--- NOTE | 2017-08-26 19:31 | NUR ---
Start of Shift Notes: Report received from day shift nurse. Pt is a 42M, admitted for ETOH Dependence on 08/25/17. Pt was in room with eyes closed upon start of shift. Pt was in room with eyes closed upon start of shift. During start of shift, pt is AOx4 without s/s of acute distress ntoed. Pt is full code, on regular diet, and on fall/seizure precautions. Pt noted with allergy to Cipro. Pt reports hx of Pancreatitis, Anxiety, Depression, and withdrawal induced seizure. Pt is currently on PRN Ativan to manage withdrawal symptoms. IV NS running at 125ml/hr on R hand. Last CIWA was 9 at 1600. Bed in lowest position. Side rails up x2. Call light functioning and within reach. All needs attended and met. Will continue to monitor.
[2017-08-26 20:00] VITALS: BP 101/65
[2017-08-26] MEDS: ACETAMINOPHEN 325 MG TABLET PO PRN (20:51)
--- NOTE | 2017-08-26 20:51 | NUR ---
PRN Ativan and PRN Tylenol: Pt noted with mild tremors and anxiety. CIWA 6. PRN 1mg Ativan given as ordered. Pt reported 7/10 body aches. Tylenol PRN given as ordered. Will continue to monitor.
--- NOTE | 2017-08-26 22:00 | NUR ---
PRN Tylenol and Ativan reassessment: Pt in bed with eyes closed. Unable to assess pain level or CIWA score. Will continue to monitor.
[2017-08-27] VITALS (8 sets, daily range): BP systolic 97–116; BP diastolic 66–83
[2017-08-27] MEDS: IV NS 1000 ML 1,000 ML IV PRN ×2 (05:32→15:12)
[2017-08-27] MEDS ORDERED: PANTOPRAZOLE SODIUM 40 MG TABLET.DR PO SCH (07:00)
--- NOTE | 2017-08-27 07:15 | NUR ---
End of Shift Notes: Pt is a 42M, admitted for ETOH Dependence on 08/25/17. Pt slept for 10 hours. Pt c/o / general body pain. PRN Tylenol given as ordered. Pt also presented with CIWA 6 and fine tremors. PRN Ativan given as ordered. Bed in lowest position. Side rails up x2. Call light functioning and within reach. All needs attended and met. Will continue to monitor.
[2017-08-27 08:24] LABS: BILIRUBIN,DIRECT 0.2 mg/dL (0.0-0.2); BILIRUBIN,TOTAL 1.7 mg/dL (0.2-1.0); MAGNESIUM 2.1 mg/dL (1.8-2.4); PHOSPHOROUS 1.8 mg/dL (2.5-4.9); POTASSIUM 3.8 mmol/L (3.5-5.1); TOTAL PROTEIN, SERUM 6.3 g/dL (6.4-8.2)
[2017-08-27] MEDS: MULTIVITAMINS,THERAPEUTIC TABLET PO SCH (08:55)
[2017-08-27] MEDS: FOLIC ACID 1 MG TABLET PO SCH (08:55)
--- NOTE | 2017-08-27 08:55 | NUR ---
PRN BENTYL Patient complains of stomach cramps. PRN Bentyl given. Will continue to monitor patient.
[2017-08-27] MEDS: THIAMINE HCL 100 MG TABLET PO SCH (08:56)
[2017-08-27] MEDS: SERTRALINE HCL 100 MG TABLET PO SCH (08:56)
[2017-08-27 09:20] LABS: BASOPHILS % (AUTO) 0.3 % (0.0-2.0); EOSINOPHILS # (AUTO) 0.1 K/uL (0.0-0.7); EOSINOPHILS % (AUTO) 1.6 % (0.0-7.0); LYMPHOCYTES # (AUTO) 1.7 K/uL (20.0-40.0); LYMPHOCYTES % (AUTO) 27.2 % (20.5-51.5); MEAN CORPUSCULAR HEMOGLOBIN 31.8 uug (23.8-33.4); MEAN CORPUSCULAR HGB CONC 34 g/dL (32.5-36.3); MONOCYTES # (AUTO) 0.5 K/uL (2.0-10.0); NEUTROPHILS % (AUTO) 62.9 % (38.5-71.5); PLATELET COUNT (AUTO) 93 K/uL (152-348)
[2017-08-27 09:30] LABS: HEMATOCRIT 39.6 % (36.7-47.1); HEMOGLOBIN 13.5 g/dL (12.5-16.3); RED BLOOD CELL COUNT(AUTO) 4.26 MIL/uL (4.06-5.63); WHITE BLOOD COUNT (AUTO) 6.4 K/uL (3.6-10.2)
--- NOTE | 2017-08-27 09:53 | NUR ---
START OF SHIFT Received report from store operations manager nurse. Patient is 42 year old male admitted for medically supervised withdrawal from alcohol. Patient is full code with ciprofloxacin. On assessment this AM: CIWA: 6. Denies SOB, chest pain. Patients vitals signs: WNL. Patient reports anxiety, mild tremors, sweating, tingling sensation and mild headache. Compliant with AM meds. Offered prn but patient declined at this time. Patient is receiving NS 0.9% IV fluids at 125ml/hr. IV access on R hand with good blood return, no redness or swelling noted. Patient reports weakness when ambulating to the bathroom but denies lightheadedness. No falls noted. Encouraged po fluids. Encouraged pt. to attend group meetings today. Will continue to monitor patient.
--- NOTE | 2017-08-27 09:55 | NUR ---
REASSESSMENT PRN SOLOMON Patient reports stomach cramping decreased. Med effective
[2017-08-27 12:03] LABS: BAND % (MANUAL) 1 % (0-10); EOSINOPHILS % (MANUAL) 2 % (0-8); LYMPHOCYTES % (MANUAL) 28 % (20-40); MONOCYTES % (MANUAL) 10 % (2-10); NEUTROPHILS % (MANUAL) 58 % (42-75)
[2017-08-27 12:07] LABS: REACTIVE LYMPHOCYTES 1 % (0-0)
[2017-08-27 12:09] LABS: HEPATITIS B SURFACE AG Negative (Negative)
[2017-08-27] MEDS ORDERED: LORAZEPAM 1 MG TABLET PO PRN ×2 (13:45)
[2017-08-27] MEDS ORDERED: POTASSIUM CHLORIDE 20 MEQ POWDER PACKET PO ONE (15:00)
[2017-08-27] MEDS ORDERED: POTASSIUM CHLORIDE 20 MEQ TAB.PRT.SR PO ONE (15:00)
[2017-08-27] MEDS ORDERED: NEUTRA PHOS PACKET PO ONE (15:00)
[2017-08-27] MEDS ORDERED: LORAZEPAM 1 MG TABLET PO SCH ×2 (15:00→21:00)
--- NOTE | 2017-08-27 15:26 | NUR ---
MD COMMUNICATION Patient reports having dark/black stools after lunch time. MD notified.
--- NOTE | 2017-08-27 16:00 | NUR ---
ORTHO VITALS AT 16:00OPM Layin/73, hr 82 Sittin/77, HR 88 Standin/6, HR 76
[2017-08-27 17:54] LABS: *OCCULT BLOOD STOOL POSITIVE (NEGATIVE)
[2017-08-27] MEDS: PANTOPRAZOLE SODIUM 40 MG TABLET.DR PO SCH (18:31)
--- NOTE | 2017-08-27 19:17 | NUR ---
END OF SHIFT Patient is 42 year old male admitted for medically supervised withdrawal from alcohol. Patient is full code with allergy to ciprofloxacin. Most recent CIWA 6. Reports anxiety, tremors, tingling sensation and lightheadedness. Patient reported having black/dark stools after lunch time, MD notified. Patient reported he had BM on and noted black stools. Orthostatic vitals taken as ordered, results given to MD. Stool sample collected and sent to lab for stool occult test. Patient is receiving NS 0.9% IV fluids at 125ml/hr. IV access on R hand with good blood return, no redness or swelling noted. PPD skin test to be read 08/28/17, endorsed to oncoming RN. night club managernight stocker will continue to monitor patient.
--- NOTE | 2017-08-27 19:30 | NUR ---
START OF SHIFT Received 42 year old male patient. Pt is lying in bed with eyes closed noted to be asleep. Breathing is even and unlabored. Pt with NS running at 125mL/hr. IV is patent and flowing well. Pt is not currently on a taper but has PRN medications available. Per endorsement, pt noted with dark tarry stool. Fecal occult blood was sent to lab, results came back positive. Pt is scheduled to have a GI consult. Safety measures in place. Will continue to monitor.
--- NOTE | 2017-08-27 20:15 | NUR ---
ORTHOSTATIC BP: LAYIN/69, HR:62, RR:16, SpO2:97% SITTIN/84, HR:74, RR:16, SpO2: 99% STANDIN/77, HR: 104, RR:16, SpO2: 99%
[2017-08-27] MEDS: ACETAMINOPHEN 325 MG TABLET PO PRN (20:52)
--- NOTE | 2017-08-27 20:52 | NUR ---
PRN TYLENOL Pt complains of headache /10. PRN Tylenol administered as ordered for pain. Will monitor effectiveness.
--- NOTE | 2017-08-27 21:52 | NUR ---
PRN TYLENOL REASSESSMENT PRN medication effective. Pt reports headache 09/26. Will continue to monitor.
--- NOTE | 2017-08-27 23:55 | NUR ---
NPO STATUS Pt was educated on NPO status at midnight. Snacks and beverages were removed from pt's room. Pt verbalized understanding. Ice chips at bedside per pt request. Will continue to monitor.
[2017-08-28] VITALS: BP 102/65
--- NOTE | 2017-08-28 00:05 | NUR ---
ORTHOSTATIC BP laying- BP: 102/65, HR: 77, standing- BP: 107/70, HR: 85
[2017-08-28] MEDS: IV NS 1000 ML 1,000 ML IV PRN ×3 (01:06→20:22)
[2017-08-28 04:05] VITALS: BP 108/68
--- NOTE | 2017-08-28 04:05 | NUR ---
ORTHOSTATIC BP 0400 LAYIN/68, HR:56 STANDIN/71, HR: 96
[2017-08-28] MEDS: PANTOPRAZOLE SODIUM 40 MG TABLET.DR PO SCH ×2 (06:51→19:23)
[2017-08-28 06:52] LABS: BASOPHILS % (AUTO) 0.6 % (0.0-2.0); EOSINOPHILS # (AUTO) 0.2 K/uL (0.0-0.7); EOSINOPHILS % (AUTO) 3.6 % (0.0-7.0); HEMATOCRIT 39.3 % (36.7-47.1); HEMOGLOBIN 13.1 g/dL (12.5-16.3); LYMPHOCYTES # (AUTO) 2.2 K/uL (20.0-40.0); LYMPHOCYTES % (AUTO) 39.8 % (20.5-51.5); MEAN CORPUSCULAR HEMOGLOBIN 31.5 uug (23.8-33.4); MEAN CORPUSCULAR HGB CONC 34 g/dL (32.5-36.3); MEAN CORPUSCULAR VOLUME 94.1 fL (73.0-96.2); MONOCYTES # (AUTO) 0.5 K/uL (2.0-10.0); MONOCYTES % (AUTO) 8.3 % (0.0-11.0); NEUTROPHILS # (AUTO) 2.7 K/uL (1.8-8.9); NEUTROPHILS % (AUTO) 47.7 % (38.5-71.5); PLATELET COUNT (AUTO) 89 K/uL (152-348); RED BLOOD CELL COUNT(AUTO) 4.18 MIL/uL (4.06-5.63); WHITE BLOOD COUNT (AUTO) 5.6 K/uL (3.6-10.2)
--- NOTE | 2017-08-28 07:15 | NUR ---
END OF SHIFT Pt is a 42 year old male patient. Pt with NS running at 125mL/hr. 22 gauge IV on right hand is patent and flowing well. Pt complained of headache and received PRN Tylenol. Pt went to smoke one time during the shift, pt appeared flushed, disheveled and odorous. Pt was noted to be anxious and withdrawn. Pt was NPO status at midnight. He is scheduled to have EGD done later today. He slept a total of 9 hrs, Intake:796mL, Void:x2, BM:0, CIWA: 8. Pt remains alert and oriented x4 and is compliant with care. Safety measures in place. Endorsed to AM shift.
--- NOTE | 2017-08-28 07:30 | NUR ---
START OF SHIFT Pt 42 y/o male admitted for medically supervised withdrawal. Pt received in room on bed with eyes closed resting, but easily arousable to name. Pt alert and oriented to name, place, and time. Perrla. Skin warm and moist to touch. Respirations even and unlabored. Bilateral hand tremors noted. Pt appeasr disheveled. Dirty clothes scattered throughout the floor. Pt anxious this morning. It was reported that pt slept for 9 hours last night. Pt with peripheral IV 22g on right hand intact and in place and is infusing NS @ 125mL/hr and is tolerating well. last ciwa=8 reported at 0400. Bed on lowest position with side rails x2 up for safety. Call light within reach. Pt is currently on NPO for EGD scheduled for later in the day. Pt is compliant with NPO. Addendum: 08/28/17 at 1429 by TARA GOMEZ RN error additional documentation
[2017-08-28 07:50] LABS: BILIRUBIN,DIRECT 0.3 mg/dL (0.0-0.2); BILIRUBIN,TOTAL 1.1 mg/dL (0.2-1.0); MAGNESIUM 1.8 mg/dL (1.8-2.4); POTASSIUM 3.5 mmol/L (3.5-5.1)
[2017-08-28 08:00] VITALS: BP 126/69
[2017-08-28] MEDS: FOLIC ACID 1 MG TABLET PO SCH (08:56)
[2017-08-28] MEDS: THIAMINE HCL 100 MG TABLET PO SCH (08:56)
[2017-08-28] MEDS: SERTRALINE HCL 100 MG TABLET PO SCH (08:56)
[2017-08-28] MEDS: MULTIVITAMINS,THERAPEUTIC TABLET PO SCH (08:56)
[2017-08-28] MEDS ORDERED: LORAZEPAM 1 MG TABLET PO SCH (09:00)
[2017-08-28 10:37] LABS: EOSINOPHILS % (MANUAL) 4 % (0-8); LYMPHOCYTES % (MANUAL) 38 % (20-40); MONOCYTES % (MANUAL) 6 % (2-10); NEUTROPHILS % (MANUAL) 52 % (42-75)
[2017-08-28 12:00] VITALS: BP 121/69
--- NOTE | 2017-08-28 15:53 | NUR ---
GI Pt picked up by GI for EGD.
[2017-08-28 16:00] VITALS: BP 124/80
--- NOTE | 2017-08-28 17:10 | NUR ---
NSG ENTRY Pt back on unit with EGD results ulcerative esophagitis s/p biopsy , gastritis s/o biopsy.
--- NOTE | 2017-08-28 19:11 | NUR ---
END OF SHIFT Pt 42 y/o male admitted for medically supervised withdrawal. Pt alert and oriented to name, place, and time. Perrla. Skin warm and moist to touch. Respirations even and unlabored. Bilateral hand tremors noted. Pt appears disheveled, malodorous, and unkempt. Pt anxious this morning. Pt had EGD completed this afternoon. Pt with peripheral IV 22g on right hand intact and in place and is infusing NS @ 125mL/hr and is tolerating well. ciwa=9@0800, 9@1200, 9@1700 Bed on lowest position with side rails x2 up for safety. Call light within reach. Pt is now on full liquid diet.
--- NOTE | 2017-08-28 19:30 | NUR ---
START OF SHIFT Received 42 year old male patient. Pt is awake, alert and oriented x4. Pt noted to be unshaved and anxious about being discharged tomorrow. Pt able to verbalize that he feels ready. Per endorsement, pt had an EGD done today with the result of gastritis. Pt is on full liquid diet, able to advance as tolerated. He continues on NS 125mL/hr for hydration. IV 22 gauge on right hand is patent and flushing well. He is scheduled to be discharge to [facility]. Safety measures in place. Will continue to monitor.
--- NOTE | 2017-08-28 20:00 | NUR ---
ORTHOSTATIC BP Layin/91, HR:89 Standin/81 HR: 92
[2017-08-28 20:19] VITALS: BP_SYST 139; BP_SYST 91; BP_DIAS 91
--- NOTE | 2017-08-28 20:21 | NUR ---
PRN BENADRYL Pt complains of inability to fall asleep. PRN Benadryl administered as ordered. Safety measures in place. Will monitor effectiveness.
[2017-08-28] MEDS ORDERED: POTASSIUM CHLORIDE 10 MEQ CAPSULE.SA PO ONE (21:00)
[2017-08-28] MEDS ORDERED: MAGNESIUM OXIDE 400 MG TABLET PO ONE (21:00)
--- NOTE | 2017-08-28 21:21 | NUR ---
PRN REASSESSMENT PRN medication effective. Pt lying in bed with eyes closed noted to be asleep. Breathing even and unlabored. Safety measures in place. Will continue to monitor.
[2017-08-28] MEDS ORDERED: DIPH50CA37 PO (22:22)
[2017-08-28] MEDS ORDERED: ONDA4TAB11 SL (22:22)
[2017-08-28] MEDS ORDERED: DICY20TA28 PO (22:22)
[2017-08-28] MEDS ORDERED: PANT40TA2 PO (22:22)
[2017-08-28] MEDS ORDERED: SERT100T12 PO (22:22)
[2017-08-29] VITALS: BP 119/79
[2017-08-29 04:00] VITALS: BP 107/70
[2017-08-29] MEDS: IV NS 1000 ML 1,000 ML IV PRN (04:08)
[2017-08-29] MEDS: PANTOPRAZOLE SODIUM 40 MG TABLET.DR PO SCH (06:54)
--- NOTE | 2017-08-29 07:03 | NUR ---
END OF SHIFT Pt is a 42 year old male patient. Pt is alert and oriented x4. He is scheduled to be DC today. Pt noted with NS running at 125mL/hr. IV 22 gauge on right hand is patent and flushing well. He continues on a full liquid diet with advancement to regular diet as tolerated. Pt was able to tolerate two cups of pudding during the shift. Pt complained of insomnia and received PRN Benadryl at 2020. He slept a total of 9 hrs, Intake: 1000mL, Void: x3, BM:0. Breathing is even and unlabored. Safety measures in place. Endorsed to AM shift.
--- NOTE | 2017-08-29 07:45 | NUR ---
START OF SHIFT RECEIVED PT A/OX4, RESPIRATIONS EVEN AND UNLABORED. PT HAS IV ON R HAND 22G RUNNING 125 ML/HR NS. PT IS TO BE DISCHARGED TODAY. ALL SAFETY MEASURES IN PLACE, SIDE RAILS UPX2, BED IN LOWEST POSITION. CALL LIGHT WITHIN REACH. WILL CONTINUE TO MONITOR.
[2017-08-29 08:00] VITALS: BP 119/70
[2017-08-29] MEDS: MULTIVITAMINS,THERAPEUTIC TABLET PO SCH (09:04)
[2017-08-29] MEDS: THIAMINE HCL 100 MG TABLET PO SCH (09:05)
[2017-08-29] MEDS: SERTRALINE HCL 100 MG TABLET PO SCH (09:05)
[2017-08-29] MEDS: FOLIC ACID 1 MG TABLET PO SCH (09:05)
--- NOTE | 2017-08-29 09:36 | NUR ---
DISCHARGE NOTE PT IS IN STABLE CONDITION, A/OX4, RESPIRATIONS EVEN AND UNLABORED, VVS. PT IV D/C AND TAKEN OUT FROM R HAND. PT SIGNED, DATED, COPIED ALL D/C PAPERWORK. D/C INSTRUCTION GIVEN TO PT AND PT VERBALIZED UNDERSTANDING. PT REPORTS HE IS "READY TO BEGIN THE NEXT STEP." PT HAD NO HOME MEDS OR ITEMS IN [place]ET[place]. 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 PT IS BEING TAKEN TO [facility].
== END 2017-08-29 09:36 | DRG 895 ==
LOC: SRC 21:28
PROVIDERS: ADMIT Internal Medicine; ATTEND Internal Medicine
PROC: HZ2ZZZZ Detoxification Services for Substance Abuse Treatment (ICD-10-PCS; principal; 2017-08-25)
PROC: HZ51ZZZ Individual Psychotherapy for Substance Abuse Treatment, Behavioral (ICD-10-PCS; 2017-08-27)
DX: F10.230 Alcohol dependence with withdrawal, uncomplicated (principal); K22.11 Ulcer of esophagus with bleeding; D69.6 Thrombocytopenia, unspecified; E87.8 Other disorders of electrolyte and fluid balance, not elsewhere classified; E83.42 Hypomagnesemia; E83.39 Other disorders of phosphorus metabolism; F33.1 Major depressive disorder, recurrent, moderate; E87.1 Hypo-osmolality and hyponatremia; I15.9 Secondary hypertension, unspecified; K70.10 Alcoholic hepatitis without ascites; Y90.9 Presence of alcohol in blood, level not specified; K29.20 Alcoholic gastritis without bleeding; E86.0 Dehydration; E87.6 Hypokalemia; F17.210 Nicotine dependence, cigarettes, uncomplicated; F41.9 Anxiety disorder, unspecified; Z59.1 Inadequate housing; Z91.89 Other specified personal risk factors, not elsewhere classified; Z81.1 Family history of alcohol abuse and dependence; Z80.3 Family history of malignant neoplasm of breast; K29.00 Acute gastritis without bleeding; I95.1 Orthostatic hypotension; G47.00 Insomnia, unspecified; K21.9 Gastro-esophageal reflux disease without esophagitis; D64.9 Anemia, unspecified; D72.829 Elevated white blood cell count, unspecified
CPT/HCPCS: 36415; 80307; 82746; 83550; 83735; 84100; 85025; 85610; 86580; 86592; 86705; 86803; 87340; 87806; G0480; J2405; J3411; J7030; Q0162; Q0163

== ENCOUNTER 2017-08-28 12:35 | Day surgery (SDC) | payer BC, OTHER ==
[~2017-08-28 12:35] MED LIST changes: +TRAZ-147 PO
[2017-08-28] MEDS ORDERED: LIDOCAINE HCL 2% 20 ML VIAL MC ONE (12:36)
[2017-08-28] MEDS ORDERED: PROPOFOL 200 MG/20 ML BOTTLE IV ONE (12:36)
[2017-08-28] MEDS ORDERED: PANT40TA2 PO (22:22)
[2017-08-28] MEDS ORDERED: DIPH50CA37 PO (22:22)
[2017-08-28] MEDS ORDERED: SERT100T12 PO (22:22)
[2017-08-28] MEDS ORDERED: ONDA4TAB11 SL (22:22)
[2017-08-28] MEDS ORDERED: DICY20TA28 PO (22:22)
== END 2017-08-28 16:55 | disposition still patient (30) ==
LOC: DS 12:35
PROVIDERS: ATTEND Internal Medicine Gastroenterology
DX: K22.10 Ulcer of esophagus without bleeding (principal); K29.70 Gastritis, unspecified, without bleeding; K44.9 Diaphragmatic hernia without obstruction or gangrene; D69.6 Thrombocytopenia, unspecified
CPT/HCPCS: 88342; A4217; J3490